=== PATIENT | female | born 1940 | race Caucasian/White ===

== ENCOUNTER → 2017-01-25 | Outpatient (CLI) | payer MEDICARE | END | disposition home or self-care (01) | LOC: US 13:50 | DX: I65.23 Occlusion and stenosis of bilateral carotid arteries (principal); I10 Essential (primary) hypertension; R55 Syncope and collapse; R51 Headache; R42 Dizziness and giddiness ==

== ENCOUNTER → 2017-02-02 | Outpatient (CLI) | payer MEDICARE | END | disposition home or self-care (01) | LOC: CT 01-24 10:00 → CARD 09:48 → US 10:30 → CARD 10:30 | DX: I08.3 Combined rheumatic disorders of mitral, aortic and tricuspid valves (principal) ==

== ENCOUNTER → 2018-01-28 | Outpatient (CLI) | payer MEDICARE ==
[2018-01-28 11:53] LABS: BASO # 0.1 10*3/uL (0.0-0.1); BASO % 1.5 % (0.0-1.0); EOS # 0.3 10*3/uL (0.0-0.4); EOS % 3.5 % (1.0-4.0); HEMATOCRIT 40.8 % (37.0-47.0); HEMOGLOBIN 13.8 g/dl (12.0-16.0); LYMPH # 2.3 10*3/uL (1.3-4.4); LYMPH % 31.3 % (27.0-41.0); MEAN CORPUSCULAR HGB 33.5 pg (27.0-31.0); MEAN CORPUSCULAR HGB CONC 33.8 g/dl (33.0-37.0); MEAN PLATELET VOLUME 9.5 fl (9.6-12.3); MONO # 0.4 10*3/uL (0.1-1.0); MONO % 5.8 % (3.0-9.0); NEUT # 4.1 10*3/uL (2.3-7.9); NEUT % 56.8 % (47.0-73.0); PLATELET COUNT AUTOMATED 223 10*3/uL (130-400); RED BLOOD COUNT 4.12 10*6/uL (4.10-5.10); RED CELL DISTRI WIDTH 13.7 % (0-14.5); WHITE BLOOD COUNT 7.2 10*3/uL (4.8-10.8)
[2018-01-28 12:20] LABS: CPK 360 U/L (26-192)
[2018-01-29 07:06] LABS: RHEUMATOID ARTHRITIS FACTOR <10.0 IU/mL (0.0-13.9)
[2018-01-29 15:08] LABS: ATYPICAL PANCA <1:20 titer (Neg:<1:20); CYTOPLASMIC (C-ANCA) <1:20 titer (Neg:<1:20)
[2018-01-30 01:04] LABS: LUPUS DRVVT 40.6 sec (0.0-47.0); PTT-LA 38.7 sec (0.0-51.9)
[2018-01-30 15:12] LABS: ANTIMYELOPEROXIDASE (MPO) ABS <9.0 U/mL (0.0-9.0)
[2018-01-31 13:04] LABS: LUPUS REFLEX INTERPRETATION Comment: (.)
== END | disposition home or self-care (01) ==
LOC: LAB 11:25
PROVIDERS: Neurological Surgery
DX: M50.30 Other cervical disc degeneration, unspecified cervical region (principal); M48.02 Spinal stenosis, cervical region; M51.36 Other intervertebral disc degeneration, lumbar region; M25.50 Pain in unspecified joint

== ENCOUNTER → 2018-07-24 | Outpatient (CLI) | payer MEDICARE | END | disposition home or self-care (01) | LOC: LAB 10:28 | DX: E03.9 Hypothyroidism, unspecified (principal) ==

== ENCOUNTER → 2019-09-03 | Outpatient (CLI) | payer MEDICARE ==
[2019-09-03 12:26] LABS: BASO # 0.1 10*3/uL (0.0-0.1); EOS # 0.2 10*3/uL (0.0-0.4); EOS % 3.5 % (1.0-4.0); HEMATOCRIT 42.3 % (37.0-47.0); HEMOGLOBIN 14.5 g/dl (12.0-16.0); LYMPH # 2.3 10*3/uL (1.3-4.4); LYMPH % 47.4 % (27.0-41.0); MEAN CELL VOLUME 95.5 fl (81.0-99.0); MEAN CORPUSCULAR HGB 32.7 pg (27.0-31.0); MEAN CORPUSCULAR HGB CONC 34.3 g/dl (33.0-37.0); MEAN PLATELET VOLUME 9.2 fl (9.6-12.3); MONO # 0.4 10*3/uL (0.1-1.0); MONO % 8.6 % (3.0-9.0); NEUT # 1.9 10*3/uL (2.3-7.9); NEUT % 38.7 % (47.0-73.0); PLATELET COUNT AUTOMATED 213 10*3/uL (130-400); RED BLOOD COUNT 4.43 10*6/uL (4.10-5.10); RED CELL DISTRI WIDTH 13.3 % (0-14.5); WHITE BLOOD COUNT 4.8 10*3/uL (4.8-10.8)
[2019-09-03 12:40] LABS: ALBUMIN 3.4 gm/dl (3.1-4.5); BILIRUBIN, DIRECT 0.3 mg/dL (0.0-0.2); CREATININE 1.09 mg/dL (0.55-1.02); PHOSPHOROUS 3.4 mg/dL (2.5-4.9); POTASSIUM 3.6 mmol/L (3.5-5.1); TOTAL PROTEIN 6.5 gm/dL (6.4-8.2)
== END | disposition home or self-care (01) ==
LOC: LAB 11:22
PROVIDERS: Internal Medicine
DX: E03.9 Hypothyroidism, unspecified (principal); I10 Essential (primary) hypertension; R10.13 Epigastric pain

== ENCOUNTER 2022-05-17 17:55 | Inpatient (IN) | payer OTHER, MEDICARE ==
[~2022-05-17] VITALS: Ht 152.4 cm; Wt 50.0 kg
[2022-05-17 18:03] VITALS: BP 137/82
[2022-05-17 19:12] LABS: BASO % 0.2 % (0.0-1.0); HEMATOCRIT 47.1 % (37.0-47.0); LYMPH # 1.5 10*3/uL (1.3-4.4); MEAN CELL VOLUME 94.2 fl (81.0-99.0); MEAN CORPUSCULAR HGB 33.4 pg (27.0-31.0); MEAN CORPUSCULAR HGB CONC 35.5 g/dl (33.0-37.0); MEAN PLATELET VOLUME 9.8 fl (9.6-12.3); MONO % 7.2 % (3.0-9.0); NEUT # 11.7 10*3/uL (2.3-7.9); NEUT % 81.1 % (47.0-73.0); PLATELET COUNT AUTOMATED 277 10*3/uL (130-400); RED CELL DISTRI WIDTH 13.2 % (0-14.5); WHITE BLOOD COUNT 14.4 10*3/uL (4.8-10.8)
[2022-05-17 19:25] LABS: ACT PARTIAL THROMBO TIME 26.2 SECONDS (20.0-32.1)
[2022-05-17 19:30] LABS: CREATININE 1.27 mg/dL (0.55-1.02); POTASSIUM 3.5 mmol/L (3.5-5.1); TOTAL PROTEIN 7.1 gm/dL (6.4-8.2)
[2022-05-17 20:33] LABS: BILIRUBIN Negative (Negative); BLOOD Negative (Negative); CLARITY Cloudy (Clear); COLOR Dark Yellow (Yellow); GLUCOSE Negative (Negative); KETONE 1+ (Negative); LEUKO ESTERASE 2+ (Negative); NITRITE Negative (Negative); SPECIFIC GRAVITY 1.025 (1.001-1.030)
[2022-05-17 20:41] LABS: BACTERIA 1+; WBC 31-40 wbc/hpf (0-5)
[2022-05-17] MEDS ORDERED: HYOSCYAMINE0.125 MG PO (22:52)
[2022-05-17] MEDS ORDERED: COLESTIPOL HYDRO1 GM PO (22:58)
[2022-05-17] MEDS ORDERED: CIPROFLOX-DEXA7.5 ML OT (22:59)
[2022-05-17] MEDS ORDERED: SERTRALINE HYDR50 MG PO (23:00)
[2022-05-17] MEDS ORDERED: LEVOTHYROXINE125 MCG PO (23:01)
[2022-05-17] MEDS ORDERED: DONEPEZIL HYDROC5 MG PO (23:02)
[2022-05-17 23:40] VITALS: BP 152/65
[2022-05-18 03:10] VITALS: BP 164/81
[2022-05-18 05:13] LABS: ALKALINE PHOSPHATASE 57 U/L (45-117); BUN 35 mg/dl (7-24); CHLORIDE 102 mmol/L (98-107); CREATININE 0.97 mg/dL (0.55-1.02); POTASSIUM 2.9 mmol/L (3.5-5.1); SGOT/AST 22 IU/L (3-35); SGPT/ALT 15 U/L (12-78); SODIUM 145 mmol/L (136-145)
[2022-05-18 05:14] LABS: FREE T4 0.94 ng/dl (0.76-1.46)
[2022-05-18 06:07] LABS: BASO % 0.2 % (0.0-1.0); HEMATOCRIT 43.1 % (37.0-47.0); LYMPH # 1.4 10*3/uL (1.3-4.4); LYMPH % 13.7 % (27.0-41.0); MEAN CELL VOLUME 96.9 fl (81.0-99.0); MEAN CORPUSCULAR HGB 33.3 pg (27.0-31.0); MEAN CORPUSCULAR HGB CONC 34.3 g/dl (33.0-37.0); MEAN PLATELET VOLUME 10.1 fl (9.6-12.3); MONO # 0.8 10*3/uL (0.1-1.0); MONO % 7.8 % (3.0-9.0); NEUT # 8.1 10*3/uL (2.3-7.9); NEUT % 77.1 % (47.0-73.0); PLATELET COUNT AUTOMATED 251 10*3/uL (130-400); RED BLOOD COUNT 4.45 10*6/uL (4.10-5.10); RED CELL DISTRI WIDTH 13.2 % (0-14.5); WHITE BLOOD COUNT 10.5 10*3/uL (4.8-10.8)
[2022-05-18 06:21] VITALS: BP 174/61
[2022-05-18 08:10] VITALS: BP 172/59
[2022-05-18 10:51] VITALS: BP 170/67
[2022-05-18 11:08] LABS: BUN 35 mg/dl (7-24); CHLORIDE 103 mmol/L (98-107); POTASSIUM 2.9 mmol/L (3.5-5.1); SODIUM 145 mmol/L (136-145)
[2022-05-18 13:33] LABS: BUN 32 mg/dl (7-24); CHLORIDE 103 mmol/L (98-107); CREATININE 0.87 mg/dL (0.55-1.02); POTASSIUM 3.3 mmol/L (3.5-5.1); SODIUM 140 mmol/L (136-145)
[2022-05-18 16:00] VITALS: BP 176/80
[2022-05-18 18:11] LABS: BASO % 0.2 % (0.0-1.0); HEMATOCRIT 45.8 % (37.0-47.0); LYMPH # 1.7 10*3/uL (1.3-4.4); LYMPH % 13.1 % (27.0-41.0); MEAN CELL VOLUME 98.5 fl (81.0-99.0); MEAN CORPUSCULAR HGB 32.9 pg (27.0-31.0); MEAN CORPUSCULAR HGB CONC 33.4 g/dl (33.0-37.0); MEAN PLATELET VOLUME 9.7 fl (9.6-12.3); MONO # 0.9 10*3/uL (0.1-1.0); MONO % 6.8 % (3.0-9.0); NEUT # 10.2 10*3/uL (2.3-7.9); NEUT % 78.7 % (47.0-73.0); PLATELET COUNT AUTOMATED 239 10*3/uL (130-400); RED BLOOD COUNT 4.65 10*6/uL (4.10-5.10); RED CELL DISTRI WIDTH 13.2 % (0-14.5)
[2022-05-18 20:00] VITALS: BP 130/52
[2022-05-19] VITALS (15 sets, daily range): BP systolic 98–189; BP diastolic 53–95
[2022-05-19 06:23] LABS: BUN 28 mg/dl (7-24); CHLORIDE 103 mmol/L (98-107); SODIUM 141 mmol/L (136-145)
[2022-05-19 06:30] LABS: BASO % 0.2 % (0.0-1.0); HEMATOCRIT 44.7 % (37.0-47.0); LYMPH # 1.9 10*3/uL (1.3-4.4); LYMPH % 20.6 % (27.0-41.0); MEAN CELL VOLUME 97.2 fl (81.0-99.0); MEAN PLATELET VOLUME 9.8 fl (9.6-12.3); MONO # 0.6 10*3/uL (0.1-1.0); MONO % 6.6 % (3.0-9.0); NEUT # 6.7 10*3/uL (2.3-7.9); NEUT % 71.5 % (47.0-73.0); PLATELET COUNT AUTOMATED 250 10*3/uL (130-400); RED CELL DISTRI WIDTH 13.2 % (0-14.5); WHITE BLOOD COUNT 9.4 10*3/uL (4.8-10.8)
[2022-05-19 23:05] LABS: ABG BASE EXCESS -2.3 mmol/L (-2.0-2.0); ARTERIAL BLOOD GAS PH 7.391 (7.35-7.45); ARTERIAL BLOOD GAS PO2 144.3 (80-90)
[2022-05-20] VITALS (10 sets, daily range): BP systolic 90–130; BP diastolic 52–62
[2022-05-20 06:59] LABS: HEMATOCRIT 37.4 % (37.0-47.0); MEAN CELL VOLUME 99.2 fl (81.0-99.0); MEAN CORPUSCULAR HGB 33.4 pg (27.0-31.0); MEAN CORPUSCULAR HGB CONC 33.7 g/dl (33.0-37.0); MEAN PLATELET VOLUME 9.2 fl (9.6-12.3); PLATELET COUNT AUTOMATED 178 10*3/uL (130-400); RED BLOOD COUNT 3.77 10*6/uL (4.10-5.10); RED CELL DISTRI WIDTH 13.7 % (0-14.5); WHITE BLOOD COUNT 7.8 10*3/uL (4.8-10.8)
[2022-05-20 07:01] LABS: MANUAL DIFF REFLEX YES
[2022-05-20 07:16] LABS: ALKALINE PHOSPHATASE 40 U/L (45-117); BUN 34 mg/dl (7-24); CHLORIDE 115 mmol/L (98-107); CREATININE 0.92 mg/dL (0.55-1.02); POTASSIUM 3.3 mmol/L (3.5-5.1); SGOT/AST 39 IU/L (3-35); SGPT/ALT 20 U/L (12-78); SODIUM 147 mmol/L (136-145); TOTAL PROTEIN 4.9 gm/dL (6.4-8.2)
[2022-05-20 07:59] LABS: BASOPHILS 1 % (0-1); TOTAL CELLS COUNTED 100 #CELLS
[2022-05-20 08:00] LABS: PLATELET SUFFICIENCY NORMAL (NORMAL)
[2022-05-20 08:01] LABS: BURR CELLS FEW; VACUOLATION OF NEUTROPHILS MODERATE
[2022-05-20 08:56] LABS: ABG BASE EXCESS -2.6 mmol/L (-2.0-2.0); ARTERIAL BLOOD GAS PH 7.422 (7.35-7.45); ARTERIAL BLOOD GAS PO2 122.4 (80-90)
[2022-05-20 14:21] LABS: ABG BASE EXCESS -1.7 mmol/L (-2.0-2.0); ARTERIAL BLOOD GAS PH 7.445 (7.35-7.45); ARTERIAL BLOOD GAS PO2 78.1 (80-90)
[2022-05-21] VITALS (9 sets, daily range): BP systolic 96–143; BP diastolic 43–90
[2022-05-21 06:08] LABS: MEAN CELL VOLUME 97.3 fl (81.0-99.0); MEAN CORPUSCULAR HGB 33.1 pg (27.0-31.0); MEAN CORPUSCULAR HGB CONC 34.1 g/dl (33.0-37.0); PLATELET COUNT AUTOMATED 168 10*3/uL (130-400); RED BLOOD COUNT 3.29 10*6/uL (4.10-5.10); RED CELL DISTRI WIDTH 13.4 % (0-14.5); WHITE BLOOD COUNT 7.9 10*3/uL (4.8-10.8)
[2022-05-21 06:11] LABS: ALKALINE PHOSPHATASE 49 U/L (45-117); BUN 34 mg/dl (7-24); CHLORIDE 116 mmol/L (98-107); CREATININE 0.77 mg/dL (0.55-1.02); POTASSIUM 3.1 mmol/L (3.5-5.1); SGOT/AST 38 IU/L (3-35); SGPT/ALT 22 U/L (12-78); SODIUM 147 mmol/L (136-145); TOTAL PROTEIN 4.7 gm/dL (6.4-8.2)
[2022-05-21 06:18] LABS: MANUAL DIFF REFLEX YES
[2022-05-21 06:54] LABS: PLATELET SUFFICIENCY NORMAL (NORMAL); TOTAL CELLS COUNTED 100 #CELLS
[2022-05-21 06:56] LABS: VACUOLATION OF NEUTROPHILS SLIGHT
[2022-05-22] VITALS: BP 132/63
[2022-05-22 04:00] VITALS: BP 134/53
[2022-05-22 08:00] VITALS: BP 148/59
[2022-05-22 08:33] LABS: HEMATOCRIT 37.5 % (37.0-47.0); MEAN CELL VOLUME 96.9 fl (81.0-99.0); MEAN CORPUSCULAR HGB 33.1 pg (27.0-31.0); MEAN CORPUSCULAR HGB CONC 34.1 g/dl (33.0-37.0); RED BLOOD COUNT 3.87 10*6/uL (4.10-5.10)
[2022-05-22 08:47] LABS: BUN 31 mg/dl (7-24); CHLORIDE 112 mmol/L (98-107); CREATININE 0.95 mg/dL (0.55-1.02); SODIUM 146 mmol/L (136-145)
[2022-05-22 09:02] LABS: MEAN PLATELET VOLUME 10.1 fl (9.6-12.3); NUCLEATED RED BLOOD CELL 0.1 10*3/uL (0.0-0.0); NUCLEATED RED BLOOD CELL 0.7 % (0.0-0.0); PLATELET COUNT AUTOMATED 209 10*3/uL (130-400); RED CELL DISTRI WIDTH 13.6 % (0-14.5); WHITE BLOOD COUNT 10.2 10*3/uL (4.8-10.8)
[2022-05-22 09:04] LABS: POTASSIUM 4.3 mmol/L (3.5-5.1)
[2022-05-22 09:04] LABS: MANUAL DIFF REFLEX YES
[2022-05-22 09:25] LABS: BURR CELLS FEW; PLATELET SUFFICIENCY NORMAL (NORMAL); POLYCHROMASIA SLIGHT; TOTAL CELLS COUNTED 100 #CELLS
[2022-05-22 12:00] VITALS: BP 131/50; BP 152/84
[2022-05-22 16:00] VITALS: BP 126/94
[2022-05-22 20:00] VITALS: BP 138/82
[2022-05-23] VITALS: BP 108/57
[2022-05-23 05:10] LABS: BUN 27 mg/dl (7-24); CHLORIDE 111 mmol/L (98-107); POTASSIUM 4.3 mmol/L (3.5-5.1); SODIUM 144 mmol/L (136-145)
[2022-05-23 05:11] LABS: CREATININE 0.85 mg/dL (0.55-1.02)
[2022-05-23 06:34] LABS: HEMATOCRIT 35.6 % (37.0-47.0); MEAN CELL VOLUME 97.8 fl (81.0-99.0); MEAN CORPUSCULAR HGB 32.4 pg (27.0-31.0); MEAN CORPUSCULAR HGB CONC 33.1 g/dl (33.0-37.0); MEAN PLATELET VOLUME 10.3 fl (9.6-12.3); NUCLEATED RED BLOOD CELL 0.1 10*3/uL (0.0-0.0); NUCLEATED RED BLOOD CELL 0.5 % (0.0-0.0); PLATELET COUNT AUTOMATED 220 10*3/uL (130-400); RED BLOOD COUNT 3.64 10*6/uL (4.10-5.10); WHITE BLOOD COUNT 12.2 10*3/uL (4.8-10.8)
[2022-05-23 06:35] LABS: MANUAL DIFF REFLEX YES
[2022-05-23 07:49] LABS: ATYPICAL LYMPHS 1 % (0-0); BURR CELLS FEW; PLATELET SUFFICIENCY NORMAL (NORMAL); POLYCHROMASIA SLIGHT; TOTAL CELLS COUNTED 100 #CELLS
[2022-05-23 07:50] LABS: DOHLE BODIES FEW; TOXIC GRANULATION SLIGHT; VACUOLATION OF NEUTROPHILS SLIGHT
[2022-05-23 08:00] VITALS: BP 125/61
[2022-05-23 12:00] VITALS: BP 122/59
[2022-05-23 16:00] VITALS: BP 134/65
[2022-05-23 20:00] VITALS: BP 141/69
[2022-05-24] VITALS: BP 104/58
[2022-05-24 05:09] LABS: BUN 23 mg/dl (7-24); CHLORIDE 109 mmol/L (98-107); CREATININE 0.73 mg/dL (0.55-1.02); POTASSIUM 4.5 mmol/L (3.5-5.1); SODIUM 142 mmol/L (136-145)
[2022-05-24 06:21] LABS: HEMATOCRIT 35.4 % (37.0-47.0); MEAN CELL VOLUME 99.2 fl (81.0-99.0); MEAN CORPUSCULAR HGB 33.6 pg (27.0-31.0); MEAN CORPUSCULAR HGB CONC 33.9 g/dl (33.0-37.0); MEAN PLATELET VOLUME 10.4 fl (9.6-12.3); NUCLEATED RED BLOOD CELL 0.1 10*3/uL (0.0-0.0); NUCLEATED RED BLOOD CELL 0.5 % (0.0-0.0); PLATELET COUNT AUTOMATED 232 10*3/uL (130-400); RED BLOOD COUNT 3.57 10*6/uL (4.10-5.10); RED CELL DISTRI WIDTH 14.4 % (0-14.5)
[2022-05-24 06:28] LABS: MANUAL DIFF REFLEX YES
[2022-05-24 07:33] LABS: TOTAL CELLS COUNTED 100 #CELLS
[2022-05-24 07:34] LABS: BURR CELLS FEW; POLYCHROMASIA SLIGHT
[2022-05-24 07:35] LABS: PLATELET SUFFICIENCY NORMAL (NORMAL)
[2022-05-24 08:00] VITALS: BP 114/54
[2022-05-24 12:00] VITALS: BP 105/54
[2022-05-24 16:00] VITALS: BP 138/68
[2022-05-24 20:00] VITALS: BP 124/67
[2022-05-25] VITALS: BP 114/76
[2022-05-25 03:00] VITALS: BP 108/58
[2022-05-25 06:11] LABS: BUN 22 mg/dl (7-24); CHLORIDE 109 mmol/L (98-107); CREATININE 0.65 mg/dL (0.55-1.02); SODIUM 141 mmol/L (136-145)
[2022-05-25 06:20] LABS: HEMATOCRIT 35.3 % (37.0-47.0); MEAN CELL VOLUME 98.1 fl (81.0-99.0); MEAN CORPUSCULAR HGB 33.3 pg (27.0-31.0); MEAN PLATELET VOLUME 10.2 fl (9.6-12.3); NUCLEATED RED BLOOD CELL 0.1 10*3/uL (0.0-0.0); NUCLEATED RED BLOOD CELL 0.4 % (0.0-0.0); PLATELET COUNT AUTOMATED 249 10*3/uL (130-400); RED CELL DISTRI WIDTH 14.2 % (0-14.5); WHITE BLOOD COUNT 20.1 10*3/uL (4.8-10.8)
[2022-05-25 06:23] LABS: MANUAL DIFF REFLEX YES
[2022-05-25 07:43] LABS: TOTAL CELLS COUNTED 100 #CELLS
[2022-05-25 07:44] LABS: BURR CELLS FEW; DOHLE BODIES FEW; PLATELET SUFFICIENCY NORMAL (NORMAL); POLYCHROMASIA SLIGHT; TOXIC GRANULATION SLIGHT; VACUOLATION OF NEUTROPHILS SLIGHT
[2022-05-25 08:00] VITALS: BP 110/50
[2022-05-25 12:00] VITALS: BP 101/55
[2022-05-25 16:00] VITALS: BP 117/70
[2022-05-25 18:43] LABS: BUN 17 mg/dl (7-24); CHLORIDE 109 mmol/L (98-107); CREATININE 0.75 mg/dL (0.55-1.02); POTASSIUM 4.2 mmol/L (3.5-5.1); SODIUM 137 mmol/L (136-145)
[2022-05-25 20:00] VITALS: BP 115/68
[2022-05-26] VITALS: BP 109/46
[2022-05-26 08:00] VITALS: BP 145/60
[2022-05-26 09:57] LABS: HEMATOCRIT 36.2 % (37.0-47.0); MEAN CELL VOLUME 97.1 fl (81.0-99.0); MEAN PLATELET VOLUME 9.5 fl (9.6-12.3); NUCLEATED RED BLOOD CELL 0.1 10*3/uL (0.0-0.0); NUCLEATED RED BLOOD CELL 0.4 % (0.0-0.0); PLATELET COUNT AUTOMATED 271 10*3/uL (130-400); RED BLOOD COUNT 3.73 10*6/uL (4.10-5.10); RED CELL DISTRI WIDTH 14.2 % (0-14.5); WHITE BLOOD COUNT 25.5 10*3/uL (4.8-10.8)
[2022-05-26 10:11] LABS: BUN 17 mg/dl (7-24); CHLORIDE 109 mmol/L (98-107); CREATININE 0.73 mg/dL (0.55-1.02); POTASSIUM 3.9 mmol/L (3.5-5.1); SODIUM 140 mmol/L (136-145)
[2022-05-26 10:15] LABS: MANUAL DIFF REFLEX YES
[2022-05-26 10:32] LABS: TOTAL CELLS COUNTED 100 #CELLS
[2022-05-26 10:33] LABS: BURR CELLS FEW; DOHLE BODIES FEW; PLATELET SUFFICIENCY NORMAL (NORMAL); POLYCHROMASIA SLIGHT; TOXIC GRANULATION MODERATE; VACUOLATION OF NEUTROPHILS SLIGHT
[2022-05-26 12:00] VITALS: BP 121/62
[2022-05-26 16:00] VITALS: BP 114/67
[2022-05-26 20:00] VITALS: BP 130/73
[2022-05-27] VITALS: BP 126/76
[2022-05-27 06:13] LABS: MEAN CELL VOLUME 96.3 fl (81.0-99.0); MEAN CORPUSCULAR HGB 32.3 pg (27.0-31.0); MEAN CORPUSCULAR HGB CONC 33.5 g/dl (33.0-37.0); MEAN PLATELET VOLUME 9.7 fl (9.6-12.3); NUCLEATED RED BLOOD CELL 0.1 10*3/uL (0.0-0.0); NUCLEATED RED BLOOD CELL 0.3 % (0.0-0.0); PLATELET COUNT AUTOMATED 310 10*3/uL (130-400); RED BLOOD COUNT 3.53 10*6/uL (4.10-5.10); RED CELL DISTRI WIDTH 14.2 % (0-14.5); WHITE BLOOD COUNT 28.8 10*3/uL (4.8-10.8)
[2022-05-27 06:15] LABS: ALKALINE PHOSPHATASE 222 U/L (45-117); BUN 15 mg/dl (7-24); CHLORIDE 108 mmol/L (98-107); CREATININE 0.66 mg/dL (0.55-1.02); POTASSIUM 3.5 mmol/L (3.5-5.1); SGOT/AST 37 IU/L (3-35); SGPT/ALT 29 U/L (12-78); SODIUM 141 mmol/L (136-145); TOTAL PROTEIN 4.8 gm/dL (6.4-8.2)
[2022-05-27 06:25] LABS: MANUAL DIFF REFLEX YES
[2022-05-27 06:47] LABS: TOTAL CELLS COUNTED 100 #CELLS
[2022-05-27 06:48] LABS: BURR CELLS FEW; DOHLE BODIES FEW; PLATELET SUFFICIENCY NORMAL (NORMAL); POLYCHROMASIA SLIGHT; ROULEAUX SLIGHT; TOXIC GRANULATION SLIGHT; VACUOLATION OF NEUTROPHILS SLIGHT
[2022-05-27 08:00] VITALS: BP 112/62; BP 120/68
[2022-05-27 12:00] VITALS: BP 131/94
[2022-05-27 16:00] VITALS: BP 126/75
[2022-05-27 20:00] VITALS: BP 116/63
[2022-05-28] VITALS: BP 131/78
[2022-05-28 05:50] LABS: ALKALINE PHOSPHATASE 196 U/L (45-117); BUN 16 mg/dl (7-24); CHLORIDE 109 mmol/L (98-107); CREATININE 0.55 mg/dL (0.55-1.02); POTASSIUM 3.6 mmol/L (3.5-5.1); SGOT/AST 31 IU/L (3-35); SGPT/ALT 33 U/L (12-78); SODIUM 139 mmol/L (136-145); TOTAL PROTEIN 4.7 gm/dL (6.4-8.2)
[2022-05-28 06:00] LABS: MEAN CELL VOLUME 95.9 fl (81.0-99.0); MEAN CORPUSCULAR HGB 32.8 pg (27.0-31.0); MEAN CORPUSCULAR HGB CONC 34.2 g/dl (33.0-37.0); MEAN PLATELET VOLUME 9.7 fl (9.6-12.3); NUCLEATED RED BLOOD CELL 0.1 10*3/uL (0.0-0.0); NUCLEATED RED BLOOD CELL 0.3 % (0.0-0.0); PLATELET COUNT AUTOMATED 336 10*3/uL (130-400); RED BLOOD COUNT 3.44 10*6/uL (4.10-5.10); RED CELL DISTRI WIDTH 14.1 % (0-14.5); WHITE BLOOD COUNT 19.1 10*3/uL (4.8-10.8)
[2022-05-28 06:04] LABS: MANUAL DIFF REFLEX YES
[2022-05-28 06:34] LABS: BASOPHILS 1 % (0-1); PLATELET SUFFICIENCY NORMAL (NORMAL); POLYCHROMASIA SLIGHT; TOTAL CELLS COUNTED 100 #CELLS; TOXIC GRANULATION MODERATE
[2022-05-28 06:35] LABS: DOHLE BODIES FEW
[2022-05-28 08:00] VITALS: BP 120/51
[2022-05-28 12:00] VITALS: BP 114/57
[2022-05-28 16:00] VITALS: BP 114/57
[2022-05-28 20:00] VITALS: BP 120/62
[2022-05-29] VITALS: BP 126/67
[2022-05-29 05:59] LABS: ALKALINE PHOSPHATASE 190 U/L (45-117); BUN 14 mg/dl (7-24); CHLORIDE 108 mmol/L (98-107); CREATININE 0.56 mg/dL (0.55-1.02); POTASSIUM 3.7 mmol/L (3.5-5.1); SGOT/AST 31 IU/L (3-35); SGPT/ALT 24 U/L (12-78); SODIUM 138 mmol/L (136-145); TOTAL PROTEIN 4.7 gm/dL (6.4-8.2)
[2022-05-29 08:00] VITALS: BP 118/62
[2022-05-29 10:33] LABS: HEMATOCRIT 33.1 % (37.0-47.0); MEAN CELL VOLUME 97.6 fl (81.0-99.0); MEAN CORPUSCULAR HGB CONC 33.8 g/dl (33.0-37.0); MEAN PLATELET VOLUME 9.5 fl (9.6-12.3); NUCLEATED RED BLOOD CELL 0.1 10*3/uL (0.0-0.0); NUCLEATED RED BLOOD CELL 0.4 % (0.0-0.0); PLATELET COUNT AUTOMATED 404 10*3/uL (130-400); RED BLOOD COUNT 3.39 10*6/uL (4.10-5.10); RED CELL DISTRI WIDTH 14.5 % (0-14.5); WHITE BLOOD COUNT 11.3 10*3/uL (4.8-10.8)
[2022-05-29 10:54] LABS: MANUAL DIFF REFLEX YES
[2022-05-29 11:08] LABS: BASOPHILS 1 % (0-1); PLATELET SUFFICIENCY HIGH (NORMAL); TOTAL CELLS COUNTED 100 #CELLS
[2022-05-29 11:09] LABS: BURR CELLS FEW; OVALOCYTES FEW
[2022-05-29 12:00] VITALS: BP 142/66
[2022-05-29] MEDS ORDERED: VANCOMYCIN HCL125 MG PO (12:12)
[2022-05-29 16:00] VITALS: BP 134/62
[2022-05-29 20:00] VITALS: BP 123/68
[2022-05-30] VITALS: BP 118/65
[2022-05-30 06:18] LABS: HEMATOCRIT 34.2 % (37.0-47.0); MEAN CELL VOLUME 97.4 fl (81.0-99.0); MEAN CORPUSCULAR HGB 32.8 pg (27.0-31.0); MEAN CORPUSCULAR HGB CONC 33.6 g/dl (33.0-37.0); MEAN PLATELET VOLUME 9.2 fl (9.6-12.3); NUCLEATED RED BLOOD CELL 0.1 10*3/uL (0.0-0.0); NUCLEATED RED BLOOD CELL 0.5 % (0.0-0.0); PLATELET COUNT AUTOMATED 455 10*3/uL (130-400); RED BLOOD COUNT 3.51 10*6/uL (4.10-5.10); RED CELL DISTRI WIDTH 14.5 % (0-14.5)
[2022-05-30 06:19] LABS: MANUAL DIFF REFLEX YES
[2022-05-30 07:00] LABS: BUN 14 mg/dl (7-24); CHLORIDE 108 mmol/L (98-107); CREATININE 0.59 mg/dL (0.55-1.02); POTASSIUM 3.7 mmol/L (3.5-5.1); SODIUM 138 mmol/L (136-145)
[2022-05-30 07:10] LABS: BURR CELLS FEW; PLATELET SUFFICIENCY HIGH (NORMAL); POLYCHROMASIA SLIGHT; ROULEAUX SLIGHT; TOTAL CELLS COUNTED 100 #CELLS; TOXIC GRANULATION MODERATE
[2022-05-30 07:11] LABS: DOHLE BODIES FEW
[2022-05-30 08:00] VITALS: BP 132/77
[2022-05-30 12:00] VITALS: BP 135/79
[2022-05-30 16:00] VITALS: BP 131/68
[2022-05-30 20:00] VITALS: BP 125/57
[2022-05-31] VITALS: BP 114/66
[2022-05-31 08:00] VITALS: BP 127/69
[2022-05-31 12:00] VITALS: BP 135/62
[2022-05-31 16:00] VITALS: BP 110/91
[2022-05-31 20:00] VITALS: BP 128/55
[2022-06-01] VITALS: BP 135/65
[2022-06-01] MEDS ORDERED: Carafate1 GM PO (07:42)
[2022-06-01] MEDS ORDERED: PROTONIX40 M2 PEG (07:42)
[2022-06-01] MEDS ORDERED: QUETIAPINE FUMA25 MG PEG (07:44)
[2022-06-01] MEDS ORDERED: SYNTHROID,LEV175 MCG PEG (07:45)
[2022-06-01 08:00] VITALS: BP 109/55
[2022-06-01 16:00] VITALS: BP 130/61
== END 2022-06-01 16:50 | DRG 326 ==
LOC: ED 17:55 → 4E 21:16 → EDHOLD 21:16 → 5E 21:16 → ICCU 21:16 → EDHOLD 22:18 → 5E 05-18 09:25 → ICCU 05-19 12:48 → 4E 05-24 18:45
PROVIDERS: Emergency Medicine; Family Medicine; Internal Medicine; Registered Nurse; Student in an Organized Health Care Education/Training Program; ADMIT Internal Medicine; ATTEND Internal Medicine
PROC: 0BJT4ZZ Inspection of Diaphragm, Percutaneous Endoscopic Approach (ICD-10-PCS; principal; 2022-05-19)
PROC: 0BQT0ZZ Repair Diaphragm, Open Approach (ICD-10-PCS; 2022-05-19)
PROC: 5A1945Z Respiratory Ventilation, 24-96 Consecutive Hours (ICD-10-PCS; 2022-05-19)
PROC: 0D960ZZ Drainage of Stomach, Open Approach (ICD-10-PCS; 2022-05-19)
PROC: 0BH17EZ Insertion of Endotracheal Airway into Trachea, Via Natural or Artificial Opening (ICD-10-PCS; 2022-05-19)
DX: K44.0 Diaphragmatic hernia with obstruction, without gangrene (principal); J15.6 Pneumonia due to other Gram-negative bacteria; N17.0 Acute kidney failure with tubular necrosis; J96.00 Acute respiratory failure, unspecified whether with hypoxia or hypercapnia; N39.0 Urinary tract infection, site not specified; E87.2 Acidosis; A04.72 Enterocolitis due to Clostridium difficile, not specified as recurrent; E87.0 Hyperosmolality and hypernatremia; E86.0 Dehydration; Z20.822 Contact with and (suspected) exposure to COVID-19; N18.9 Chronic kidney disease, unspecified; D72.829 Elevated white blood cell count, unspecified; F41.9 Anxiety disorder, unspecified; F32.9 Major depressive disorder, single episode, unspecified; F03.90 Unspecified dementia, unspecified severity, without behavioral disturbance, psychotic disturbance, mood disturbance, and anxiety; E78.5 Hyperlipidemia, unspecified; E03.9 Hypothyroidism, unspecified; Z96.653 Presence of artificial knee joint, bilateral; H91.13 Presbycusis, bilateral; E83.39 Other disorders of phosphorus metabolism; R73.9 Hyperglycemia, unspecified; E87.8 Other disorders of electrolyte and fluid balance, not elsewhere classified; I12.9 Hypertensive chronic kidney disease with stage 1 through stage 4 chronic kidney disease, or unspecified chronic kidney disease; E87.6 Hypokalemia; S31.109A Unspecified open wound of abdominal wall, unspecified quadrant without penetration into peritoneal cavity, initial encounter; Z80.1 Family history of malignant neoplasm of trachea, bronchus and lung; Z80.41 Family history of malignant neoplasm of ovary; Z90.49 Acquired absence of other specified parts of digestive tract; Z90.710 Acquired absence of both cervix and uterus; Z68.21 Body mass index [BMI] 21.0-21.9, adult; X58.XXXA Exposure to other specified factors, initial encounter; Y93.89 Activity, other specified; Y92.89 Other specified places as the place of occurrence of the external cause; Y99.8 Other external cause status

== ENCOUNTER 2022-06-08 19:19 | Emergency (ER) | payer OTHER, MEDICARE ==
[~2022-06-08 19:19] MED LIST: CIPROFLOX-DEXA7.5 ML OT; COLESTIPOL HYDRO1 GM PO; Carafate1 GM PO; DONEPEZIL HYDROC5 MG PO; HYOSCYAMINE0.125 MG PO; LEVOTHYROXINE125 MCG PO; PROTONIX40 M2 PEG; QUETIAPINE FUMA25 MG PEG; SERTRALINE HYDR50 MG PO; SYNTHROID,LEV175 MCG PEG; VANCOMYCIN HCL125 MG PO
[2022-06-08 19:24] VITALS: BP 136/63
== END 2022-06-09 00:07 ==
LOC: ED 19:19
DX: K94.23 Gastrostomy malfunction (principal); I10 Essential (primary) hypertension; E03.9 Hypothyroidism, unspecified; E78.5 Hyperlipidemia, unspecified; Z90.49 Acquired absence of other specified parts of digestive tract; Z96.653 Presence of artificial knee joint, bilateral; Z79.899 Other long term (current) drug therapy

== ENCOUNTER 2022-07-06 06:20 | Inpatient (IN) | payer OTHER, MEDICARE ==
[2022-07-06] VITALS (7 sets, daily range): BP systolic 116–169; BP diastolic 58–73
[~2022-07-06] VITALS: Ht 152.4 cm; Wt 51.3 kg
[2022-07-06] MEDS ORDERED: PEPCID20 MG PO (06:31)
[2022-07-06] MEDS ORDERED: TYLENOL325 M2 PO (06:32)
[2022-07-06] MEDS ORDERED: LEVOTHYROXINE200 MC2 PO (06:32)
[2022-07-06] MEDS ORDERED: CHOLECALCIFEROL1 GM MC (06:32)
[2022-07-06] MEDS ORDERED: FIRVANQ50 MG/1 ML PO (06:33)
[2022-07-06 06:35] LABS: HEMATOCRIT 37.4 % (37.0-47.0); MANUAL DIFF REFLEX YES; MEAN CELL VOLUME 96.1 fl (81.0-99.0); MEAN CORPUSCULAR HGB 31.9 pg (27.0-31.0); MEAN CORPUSCULAR HGB CONC 33.2 g/dl (33.0-37.0); NUCLEATED RED BLOOD CELL 0.1 % (0.0-0.0); PLATELET COUNT AUTOMATED 392 10*3/uL (130-400); RED BLOOD COUNT 3.89 10*6/uL (4.10-5.10); RED CELL DISTRI WIDTH 13.7 % (0-14.5); WHITE BLOOD COUNT 13.7 10*3/uL (4.8-10.8)
[2022-07-06 06:49] LABS: ALKALINE PHOSPHATASE 158 U/L (45-117); BUN 35 mg/dl (7-24); CHLORIDE 99 mmol/L (98-107); CREATININE 0.58 mg/dL (0.55-1.02); LIPASE 93 U/L (73-393); POTASSIUM 4.2 mmol/L (3.5-5.1); SGOT/AST 32 IU/L (3-35); SGPT/ALT 45 U/L (12-78); SODIUM 134 mmol/L (136-145); TOTAL PROTEIN 7.1 gm/dL (6.4-8.2)
[2022-07-06 07:09] LABS: TOTAL CELLS COUNTED 100 #CELLS
[2022-07-06 07:10] LABS: POLYCHROMASIA SLIGHT; ROULEAUX SLIGHT; TOXIC GRANULATION SLIGHT; VACUOLATION OF NEUTROPHILS SLIGHT
[2022-07-06 07:11] LABS: PLATELET SUFFICIENCY NORMAL (NORMAL)
[2022-07-07 05:08] LABS: BUN 28 mg/dl (7-24); CHLORIDE 108 mmol/L (98-107); CHOLESTEROL 108 mg/dL (<200); CREATININE 0.55 mg/dL (0.55-1.02); POTASSIUM 3.7 mmol/L (3.5-5.1); SGOT/AST 25 IU/L (3-35); SGPT/ALT 35 U/L (12-78); SODIUM 141 mmol/L (136-145); TOTAL PROTEIN 6.1 gm/dL (6.4-8.2); TRIGLYCERIDES 81 mg/dl (<150)
[2022-07-07 05:14] LABS: ALKALINE PHOSPHATASE 114 U/L (45-117); FREE T4 1.56 ng/dl (0.76-1.46); LDL CHOLESTEROL 42 mg/dL (9-159)
[2022-07-07 06:11] LABS: HEMATOCRIT 36.3 % (37.0-47.0); MEAN CORPUSCULAR HGB 31.3 pg (27.0-31.0); MEAN CORPUSCULAR HGB CONC 29.5 g/dl (33.0-37.0); MEAN PLATELET VOLUME 9.2 fl (9.6-12.3); PLATELET COUNT AUTOMATED 339 10*3/uL (130-400); RED BLOOD COUNT 3.42 10*6/uL (4.10-5.10); RED CELL DISTRI WIDTH 13.9 % (0-14.5); WHITE BLOOD COUNT 9.8 10*3/uL (4.8-10.8)
[2022-07-07 06:19] LABS: MANUAL DIFF REFLEX YES
[2022-07-07 06:51] LABS: MEAN CELL VOLUME 106.1 fl (81.0-99.0)
[2022-07-07 06:54] LABS: BASOPHILS 1 % (0-1); TOTAL CELLS COUNTED 100 #CELLS
[2022-07-07 06:55] LABS: PLATELET SUFFICIENCY NORMAL (NORMAL)
[2022-07-07 08:00] VITALS: BP 134/74
[2022-07-07 12:00] VITALS: BP 123/61; BP 144/99
[2022-07-07 14:41] VITALS: BP 147/64
[2022-07-07 20:00] VITALS: BP 168/78
[2022-07-08] VITALS: BP 151/69
[2022-07-08 04:00] VITALS: BP 151/69
[2022-07-08 06:42] LABS: BUN 24 mg/dl (7-24); CHLORIDE 112 mmol/L (98-107); CREATININE 0.51 mg/dL (0.55-1.02); POTASSIUM 3.4 mmol/L (3.5-5.1); SODIUM 145 mmol/L (136-145)
[2022-07-08 06:48] LABS: BASO # 0.1 10*3/uL (0.0-0.1); BASO % 0.7 % (0.0-1.0); EOS % 0.4 % (1.0-4.0); HEMATOCRIT 32.8 % (37.0-47.0); LYMPH % 21.5 % (27.0-41.0); MEAN CORPUSCULAR HGB 31.6 pg (27.0-31.0); MEAN PLATELET VOLUME 8.7 fl (9.6-12.3); MONO # 0.7 10*3/uL (0.1-1.0); MONO % 7.6 % (3.0-9.0); NEUT # 6.4 10*3/uL (2.3-7.9); NEUT % 67.7 % (47.0-73.0); PLATELET COUNT AUTOMATED 345 10*3/uL (130-400); RED BLOOD COUNT 3.32 10*6/uL (4.10-5.10); RED CELL DISTRI WIDTH 13.4 % (0-14.5); WHITE BLOOD COUNT 9.4 10*3/uL (4.8-10.8)
[2022-07-08 06:57] LABS: MEAN CELL VOLUME 98.8 fl (81.0-99.0)
[2022-07-08 08:00] VITALS: BP 140/67
[2022-07-08 12:00] VITALS: BP 140/71
[2022-07-08 15:33] VITALS: BP 135/55
[2022-07-08 20:00] VITALS: BP 168/72
[2022-07-09] VITALS: BP 166/78
[2022-07-09 06:26] LABS: BASO # 0.1 10*3/uL (0.0-0.1); EOS % 0.4 % (1.0-4.0); HEMATOCRIT 33.6 % (37.0-47.0); LYMPH % 21.9 % (27.0-41.0); MEAN CELL VOLUME 97.1 fl (81.0-99.0); MEAN CORPUSCULAR HGB 31.8 pg (27.0-31.0); MEAN CORPUSCULAR HGB CONC 32.7 g/dl (33.0-37.0); MEAN PLATELET VOLUME 8.4 fl (9.6-12.3); MONO # 0.7 10*3/uL (0.1-1.0); MONO % 7.8 % (3.0-9.0); NEUT # 6.1 10*3/uL (2.3-7.9); NEUT % 66.5 % (47.0-73.0); PLATELET COUNT AUTOMATED 334 10*3/uL (130-400); RED BLOOD COUNT 3.46 10*6/uL (4.10-5.10); RED CELL DISTRI WIDTH 13.5 % (0-14.5); WHITE BLOOD COUNT 9.1 10*3/uL (4.8-10.8)
[2022-07-09 06:41] LABS: BUN 23 mg/dl (7-24); CHLORIDE 111 mmol/L (98-107); CREATININE 0.58 mg/dL (0.55-1.02); POTASSIUM 3.1 mmol/L (3.5-5.1); SODIUM 144 mmol/L (136-145)
[2022-07-09 08:00] VITALS: BP 150/72
[2022-07-09 12:00] VITALS: BP 148/84; BP 156/76
[2022-07-09] MEDS ORDERED: VANCOCIN HCL P125 MG PO (15:34)
[2022-07-09 16:00] VITALS: BP 150/80
[2022-07-09 20:00] VITALS: BP 144/71
[2022-07-10] VITALS: BP 126/70
[2022-07-10 06:24] LABS: BASO # 0.1 10*3/uL (0.0-0.1); BASO % 0.6 % (0.0-1.0); EOS # 0.1 10*3/uL (0.0-0.4); EOS % 1.1 % (1.0-4.0); HEMATOCRIT 34.6 % (37.0-47.0); LYMPH # 2.3 10*3/uL (1.3-4.4); LYMPH % 23.4 % (27.0-41.0); MEAN CELL VOLUME 97.7 fl (81.0-99.0); MEAN CORPUSCULAR HGB 31.1 pg (27.0-31.0); MEAN CORPUSCULAR HGB CONC 31.8 g/dl (33.0-37.0); MONO # 0.7 10*3/uL (0.1-1.0); MONO % 6.8 % (3.0-9.0); NEUT # 6.6 10*3/uL (2.3-7.9); NEUT % 66.2 % (47.0-73.0); PLATELET COUNT AUTOMATED 330 10*3/uL (130-400); RED BLOOD COUNT 3.54 10*6/uL (4.10-5.10); RED CELL DISTRI WIDTH 13.7 % (0-14.5)
[2022-07-10 06:38] LABS: CHLORIDE 108 mmol/L (98-107); POTASSIUM 3.3 mmol/L (3.5-5.1); SODIUM 138 mmol/L (136-145)
[2022-07-10 06:42] LABS: BUN 22 mg/dl (7-24); CREATININE 0.52 mg/dL (0.55-1.02)
[2022-07-10 08:00] VITALS: BP 137/74
[2022-07-10 12:00] VITALS: BP 134/75
[2022-07-10 16:00] VITALS: BP 139/73
[2022-07-10 20:00] VITALS: BP 146/75
[2022-07-11] VITALS: BP 137/72
[2022-07-11 08:00] VITALS: BP 131/73
[2022-07-11] MEDS ORDERED: SYNTHROID,LEV175 MCG PO (11:05)
[2022-07-11 12:00] VITALS: BP 142/72
== END 2022-07-11 13:01 | DRG 371 ==
LOC: ED 06:20 → ICCU 07:10 → EDHOLD 07:10 → 4E 07:10 → ICCU 10:47 → 4E 07-07 01:10
PROVIDERS: Emergency Medicine; Registered Nurse; Student in an Organized Health Care Education/Training Program; ADMIT Internal Medicine; ATTEND Internal Medicine
DX: A04.72 Enterocolitis due to Clostridium difficile, not specified as recurrent (principal); E43 Unspecified severe protein-calorie malnutrition; K56.609 Unspecified intestinal obstruction, unspecified as to partial versus complete obstruction; E87.1 Hypo-osmolality and hyponatremia; N39.0 Urinary tract infection, site not specified; Z20.822 Contact with and (suspected) exposure to COVID-19; Z96.653 Presence of artificial knee joint, bilateral; F03.90 Unspecified dementia, unspecified severity, without behavioral disturbance, psychotic disturbance, mood disturbance, and anxiety; E03.9 Hypothyroidism, unspecified; I10 Essential (primary) hypertension; E78.5 Hyperlipidemia, unspecified; F41.9 Anxiety disorder, unspecified; F32.A Depression, unspecified; K44.9 Diaphragmatic hernia without obstruction or gangrene; Z66 Do not resuscitate; B96.20 Unspecified Escherichia coli [E. coli] as the cause of diseases classified elsewhere; Z90.49 Acquired absence of other specified parts of digestive tract; Z80.1 Family history of malignant neoplasm of trachea, bronchus and lung; Z80.41 Family history of malignant neoplasm of ovary; Z51.5 Encounter for palliative care; Z68.22 Body mass index [BMI] 22.0-22.9, adult